=== PATIENT | male | born 1990 ===

== ENCOUNTER 2018-01-23 23:21 | Emergency (ER) | payer MEDICAID ==
[2018-01-23 23:21] VITALS: BMI 30.4
[2018-01-23 23:39] VITALS: BP 149/83; PULSE 89; RESP 18; TEMP 98.5; O2SAT 100
[2018-01-24 00:26] LABS: URINE BILIRUBIN NEGATIVE (NEGATIVE); URINE BLOOD 1+ (NEGATIVE); URINE CLARITY Clear (Clear); URINE COLOR Yellow (YELLOW); URINE GLUCOSE (UA) NORMAL (Normal); URINE LEUKOCYTE ESTERASE NEG Leu/uL (Negative); URINE PROTEIN NEGATIVE (NEGATIVE); URINE UROBILINOGEN NORMAL mg/dL (0.2-1.0)
[2018-01-24] MEDS ORDERED: cefTRIAXone 250 MG, Lidocaine Hydrochloride 1% 1 ML IM ONE (00:49)
--- NOTE | 2018-01-24 01:07 | C.PDOC ---
History Of Present Illness 27 year old male presents to the ER with a complaint of itching and redness to the penis for the past one week. Patient notes that after sexual intercourse his penis often gets irritated with bumps and has dysuria. Denies penile discharge, penile pain, or fever. Time Seen by Provider: 01/23/18 23:41 Chief Complaint (Nursing): Male Genitourinary History Per: Patient History/Exam Limitations: no limitations Onset/Duration Of Symptoms: Days Current Symptoms Are (Timing): Still Present Quality Of Discomfort: Unable To Describe Associated Symptoms: Urinary Symptoms (Dysuria), Other ((+) Penile rash (-) Penile discharge, Penile pain). denies: Fever Alleviating Factors: None Recent travel outside of the [place]: No Past Medical History Reviewed: Historical Data, Nursing Documentation, Vital Signs Vital Signs: Last Vital Signs Temp 98.5 F 01/23/18 23:36 Pulse 89 01/23/18 23:36 Resp 18 01/23/18 23:36 BP 149/83 01/23/18 23:36 Pulse Ox 100 01/24/18 02:05 Family History: States: Unknown Family Hx - Social History Hx Alcohol Use: Yes Hx Substance Use: Yes (MARIJUANA) - Immunization History Hx Tetanus Toxoid Vaccination: No Hx Influenza Vaccination: No Hx Pneumococcal Vaccination: No Review Of Systems Constitutional: Negative for: Fever Gastrointestinal: Negative for: Abdominal Pain Genitourinary: Positive for: Dysuria, Rash. Negative for: Penile Discharge, Scrotal Pain, Penile Pain Skin: Negative for: Lesions Physical Exam - Physical Exam Appears: Non-toxic Skin: Warm, Dry Head: Atraumatic, Normacephalic Eye(s): bilateral: Normal Inspection Oral Mucosa: Moist Chest: Symmetrical, No Tenderness Cardiovascular: Rhythm Regular Respiratory: Normal Breath Sounds, No Rales, No Rhonchi, No Wheezing Gastrointestinal/Abdominal: Soft, No Tenderness Male Genital: Other (Multiple pink papules along the shaft of the penis. Glans normal. Scrotum normal. No ulcers or vesicles.) Neurological/Psych: Oriented x3, Normal Speech ED Course And Treatment O2 Sat by Pulse Oximetry: 100 (Room air) Pulse Ox Interpretation: Normal Medical Decision Making Medical Decision Making: UA ordered, results were negative. GC/Chlamydia sent. Rocephin and zithromax administered. Will discharge home with Rx and advised to follow up at [facility] clinic for further screening. Disposition - Disposition Referrals: [facility] [Outside] Skylar Duckworth MD [Staff Provider] - Disposition: HOME/ ROUTINE Disposition Time: 01:07 Condition: GOOD Additional Instructions: Follow up with the medical doctor within 1-2 days. Return if worsened. Prescriptions: Clotrimazole 1% Cream [Lotrimin 1%] 30 applic EXT BID #2 tube Instructions: Ringworm, Athlete's Foot, and Jock Itch Forms: [employer] (Montserratian) - Clinical Impression Clinical Impression: Urethritis, Penile rash - Scribe Statement The provider has reviewed the documentation as recorded by the Scribe Bernabe Gaxiola All medical record entries made by the Scribe were at my direction and personally dictated by me. I have reviewed the chart and agree that the record accurately reflects my personal performance of the history, physical exam, medical decision making, and the department course for this patient. I have also personally directed, reviewed, and agree with the discharge instructions and disposition.
== END 2018-01-24 02:20 | disposition home or self-care (01) ==
LOC: C.ER 23:21
DX: N34.2 Other urethritis (principal); R21 Rash and other nonspecific skin eruption
CPT/HCPCS: 81001; 87086; 87491; 87591; 96372; 99284; J0696

== ENCOUNTER 2018-04-08 22:58 | Emergency (ER) | payer MEDICAID ==
[2018-04-08 22:59] VITALS: BMI 30.4
[2018-04-08 23:10] VITALS: BP 125/79; PULSE 88; RESP 16; TEMP 98.4; O2SAT 99
--- NOTE | 2018-04-08 23:31 | C.PDOC ---
History Of Present Illness 27 year old male presents to the ED for evaluation of multiple abrasions to his forearms and hands. Patient reports he was trying to break up a fight between both his pet cats and was scratched by them. Denies any bite. Patient became concerned because his cats do not have vaccinations. Patient denies fever, chills, nausea, vomit, facial swelling, rash. Time Seen by Provider: 04/08/18 23:14 Chief Complaint (Nursing): Abnormal Skin Integrity History Per: Patient History/Exam Limitations: no limitations Onset/Duration Of Symptoms: Days Current Symptoms Are (Timing): Still Present Location Of Injury: Right: Hand, Left: Forearm Quality Of Symptoms: Painful Recent travel outside of the [place]: No Additional History Per: Patient Past Medical History Reviewed: Historical Data, Nursing Documentation, Vital Signs Vital Signs: Last Vital Signs Temp 98.4 F 04/08/18 23:07 Pulse 88 04/08/18 23:07 Resp 16 04/08/18 23:07 BP 125/79 04/08/18 23:07 Pulse Ox 99 04/09/18 01:27 - Medical History PMH: No Chronic Diseases Denies: Chronic Kidney Disease Surgical History: No Surg Hx Family History: States: Unknown Family Hx - Social History Hx Alcohol Use: Yes Hx Substance Use: Yes (MARIJUANA) - Immunization History Hx Tetanus Toxoid Vaccination: Yes Hx Influenza Vaccination: No Hx Pneumococcal Vaccination: No Review Of Systems Constitutional: Negative for: Fever, Chills Gastrointestinal: Negative for: Nausea, Vomiting Musculoskeletal: Negative for: Arm Pain, Hand Pain Skin: Positive for: Other (abrasions ) Neurological: Negative for: Weakness, Numbness Physical Exam - Physical Exam Appears: Non-toxic, No Acute Distress Skin: Normal Color, Warm, Dry, Other (multiple excoriations to dorsal aspect of left forearm, minimal erythema to right thenar area extending to groove between thumb and forefinger. No bite marti, no warmth or swelling) Head: Atraumatic, Normacephalic Eye(s): bilateral: Normal Inspection Extremity: Normal ROM, No Tenderness, Capillary Refill (<2 seconds), No Swelling Pulses: Left Radial: Normal, Right Radial: Normal Neurological/Psych: Oriented x3, Normal Speech, Normal Motor, Normal Sensation Gait: Steady ED Course And Treatment O2 Sat by Pulse Oximetry: 99 (ON RA) Pulse Ox Interpretation: Normal Progress Note: Patient was instructed on proper wound care. Patient was given prescription for antibiotics that he was told to fill only if he noticed erythema was increasing and swelling appeared. Disposition Counseled Patient/Family Regarding: Diagnosis, Need For Followup, Rx Given - Disposition Disposition: HOME/ ROUTINE Disposition Time: 23:29 Condition: STABLE Additional Instructions: Apply neosporin or any antibacterial oint to area Take motrin or advil for pain Fill out antibiotics only if increase swelling, redness or pain to affected areas Please follow up with PMD in 2 days for wound care Prescriptions: Amoxicillin/Clavulanate [Augmentin 500 MG-125 MG] 1 tab PO TID #21 tab Instructions: Skin Abrasions (DC) Forms: [employer] (Grenadian) - Clinical Impression Clinical Impression: Abrasion of skin, Cat scratch - PA / BENCH TECHNICIAN / Resident Statement MD/DO has reviewed & agrees with the documentation as recorded. - Scribe Statement The provider has reviewed the documentation as recorded by the Scribe Cyril Amanda All medical record entries made by the Scribe were at my direction and personally dictated by me. I have reviewed the chart and agree that the record accurately reflects my personal performance of the history, physical exam, medical decision making, and the department course for this patient. I have also personally directed, reviewed, and agree with the discharge instructions and disposition.
== END 2018-04-08 23:50 | disposition home or self-care (01) ==
LOC: C.ER 22:58
DX: S50.812A Abrasion of left forearm, initial encounter (principal); W55.03XA Scratched by cat, initial encounter